=== PATIENT | male | born 1995 | race Caucasian/White ===

== ENCOUNTER 2018-01-10 20:51 | Emergency (ER) | END 2018-01-10 23:58 | disposition home or self-care (01) ==

== ENCOUNTER 2018-01-11 15:52 | Emergency (ER) | END 2018-01-11 17:24 | disposition home or self-care (01) ==

== ENCOUNTER 2018-01-13 16:12 | Emergency (ER) | END 2018-01-13 18:34 | disposition home or self-care (01) ==

== ENCOUNTER 2018-05-31 20:52 | Emergency (ER) | END 2018-06-01 13:06 ==